=== PATIENT | female | born 1965 | race Caucasian/White ===

== ENCOUNTER 2020-11-03 20:08 | Inpatient (IN) | payer MEDICAID, OTHER ==
[~2020-11-03] VITALS: Ht 162.6 cm; Wt 98.5 kg
--- NOTE | 2020-11-03 20:41 | NUR ---
[facility] FROM [facility] IN [facility] PT C/O OF ABDOMINAL PAIN, CP, DIAPHORESIS, ABNORMAL BM'S OILY AND YELLOW. EMS STATES LAST HOSPITAL DIAGNOSED PANCREATITIS OR GASTRITIS. PT RECEIVED ZOFRAN AND [employer] [facility]. PT STATES SHE WAS HAVING N/V/D. PT AMBULATED FROM [facility] TO [facility] ALLERGY TO SULFA, AND CODEINE LAST SEIZURE WAS 30 YEARS
[2020-11-03 20:56] LABS: BASOPHILS % (AUTO) 1 % (0-1); EOSINOPHILS % (AUTO) 1 % (1-7); LYMPHOCYTES % (AUTO) 33 % (22-44); MEAN CORPUSCULAR HEMOGLOBIN 34.8 pg (27.0-34.8); MEAN CORPUSCULAR HGB CONC 34.4 g/dL (32.4-35.8); MEAN PLATELET VOLUME 8.2 fL (7.4-10.4); MONOCYTES % (AUTO) 7 % (2-9); NEUTROPHILS % (AUTO) 58 % (42-75); PLATELET COUNT 215 x10^3/uL (130-400); RED BLOOD COUNT 4.11 x10^6/uL (3.82-5.3)
[2020-11-03] MEDS ORDERED: LISI-170 PO (20:56)
--- NOTE | 2020-11-03 20:59 | NUR ---
PT AMBULATED TO [facility] TO HAVE BM
[2020-11-03 21:08] LABS: ALANINE AMINOTRANSFERASE 59 U/L (12-78); ALBUMIN 3.8 g/dL (3.4-5.0); ANION GAP 8 mmol/L (5-15); CALCIUM 8.9 mg/dL (8.5-10.1); CHLORIDE 104 mmol/L (98-107); CREATININE 2.14 mg/dL (0.55-1.02)
[2020-11-03 21:09] LABS: ALKALINE PHOSPHATASE 105 U/L (45-117); BILIRUBIN,TOTAL 1.2 mg/dL (0.2-1.0); TOTAL PROTEIN 7.6 g/dL (6.4-8.2)
--- NOTE | 2020-11-03 21:42 | NUR ---
PT AMBULATED BACK TO ROOM EARLIER WITH STEADY GAIT APPROX 5 MINUTES AFTER LAST NOTE. PT RESTING IN BED. ATTACHED TO ALL MONITORS. VSS. BED IN LOW POSITION. RAILS ENGAGED. CALL LIGHT WIHTIN REACH. NADN. GIVEN BLANKETS FOR WARMTH. WCTM. PT WAS ALSO GIVEN [address] PT ATTEMPT TO HAVE BM OR URINATE WAS UNSUCCESSFUL AND NOTHING CAME OUT.
--- NOTE | 2020-11-03 22:42 | NUR ---
Patient is resting comfortably in bed. Bed in lowest, rails engaged, call light on lap. Vital Signs within normal limits. WCTM.
[2020-11-03] MEDS ORDERED: SODIUM CHLORIDE FLUSH 10ML SYR IVF ONE (23:00)
[2020-11-03] MEDS ORDERED: SODIUM CHLORIDE 0.9% 1,000ML IVBOLUS ONE (23:00)
--- NOTE | 2020-11-03 23:46 | NUR ---
GAVE REPORT TO MARIANA FENG. TRANSFER OF CARE
--- NOTE | 2020-11-03 23:54 | NUR ---
SPOKE TO MD JACKSON ABOUT NOT HAVING A TROPONIN LAB AND EKG DONE ON PT AND HE STATED THAT AT THE HOSPITAL PRIOR TO COMING TO [facility] [place] PT RECIEVED THE CARE AND BOTH EKG AND TROPONIN LEVEL WERE WITHIN NORMAL LIMITS.
[2020-11-04 00:30] VITALS: BP 128/87
[2020-11-04] MEDS ORDERED: BISACODYL 10 MG SUPP PR PRN (00:30)
[2020-11-04] MEDS ORDERED: ONDANSETRON 2MG/ML, 2ML IVPush PRN (00:30)
[2020-11-04] MEDS ORDERED: ACETAMINOPHEN 325 MG TABLET PO PRN (00:30)
[2020-11-04] MEDS ORDERED: POLYETHYLENE GLYCOL 17 GM PACKET PO PRN (00:30)
[2020-11-04] MEDS ORDERED: LORazepam 2 MG/ML, 1ML IV PRN ×5 (01:00)
[2020-11-04] MEDS: CHLORDIAZEPOXIDE 25 MG CAPSULE PO SCH ×4 (01:04→21:17)
[2020-11-04] MEDS: SUCRALFATE 1 GM/10 ML UDC PO SCH ×5 (01:04→21:16)
[2020-11-04] MEDS: SODIUM CHLORIDE 0.9% 1,000 ML IV SCH ×3 (01:41→16:02)
[2020-11-04] MEDS: morphine SULFATE 10 MG/ML, 1ML IVPush PRN ×2 (02:00→18:26)
[2020-11-04] MEDS: MULTIVITAMINS/MINERALS TABLET PO SCH (08:05)
[2020-11-04] MEDS: FOLIC ACID 1 MG TABLET PO SCH (08:05)
[2020-11-04] MEDS: THIAMINE 100MG TABLET PO SCH ×2 (08:05→21:16)
[2020-11-04] MEDS: PANTOPRAZOLE 40MG TABLET PO SCH (08:05)
[2020-11-04 08:08] VITALS: BP 110/72
[2020-11-04 09:29] LABS: ALBUMIN 3.7 g/dL (3.4-5.0); ANION GAP 10 mmol/L (5-15); CALCIUM 8.9 mg/dL (8.5-10.1); CHLORIDE 107 mmol/L (98-107); CREATININE 1.94 mg/dL (0.55-1.02)
[2020-11-04] MEDS: NYSTATIN TOPICAL POWDER 15GM TP SCH ×2 (09:50→21:00)
[2020-11-04 10:50] LABS: CHLORIDE,URINE RANDOM 28 mmol/L; POTASSIUM,URINE RANDOM 28 mmol/L; SODIUM,URINE RANDOM 61 mmol/L
[2020-11-04 10:51] LABS: MICROSCOPIC INDICATED
[2020-11-04] MEDS: NICOTINE 14MG/24 HR PATCH.TD24 TD SCH (13:39)
[2020-11-04 14:00] VITALS: BP 109/74
[2020-11-04] MEDS: SERTRALINE 50MG TABLET PO SCH (16:01)
[2020-11-04 21:21] VITALS: BP 119/81
[2020-11-05] MEDS: SODIUM CHLORIDE 0.9% 1,000 ML IV SCH (01:55)
[2020-11-05] MEDS: CHLORDIAZEPOXIDE 25 MG CAPSULE PO SCH ×4 (02:00→18:29)
[2020-11-05 02:04] VITALS: BP 115/79
[2020-11-05 05:34] LABS: BASOPHILS % (AUTO) 1 % (0-1); EOSINOPHILS % (AUTO) 3 % (1-7); LYMPHOCYTES % (AUTO) 36 % (22-44); MEAN CORPUSCULAR HEMOGLOBIN 35.6 pg (27.0-34.8); MEAN CORPUSCULAR HGB CONC 34.8 g/dL (32.4-35.8); MEAN PLATELET VOLUME 8.5 fL (7.4-10.4); MONOCYTES % (AUTO) 6 % (2-9); NEUTROPHILS % (AUTO) 54 % (42-75); PLATELET COUNT 183 x10^3/uL (130-400); RED CELL DISTRIBUTION WIDTH 14.8 % (9.6-15.2)
[2020-11-05 05:42] LABS: ANION GAP 5 mmol/L (5-15); CALCIUM 8.9 mg/dL (8.5-10.1); CHLORIDE 111 mmol/L (98-107)
[2020-11-05] MEDS: SUCRALFATE 1 GM/10 ML UDC PO SCH ×4 (06:40→20:52)
[2020-11-05 07:20] VITALS: BP 119/82
[2020-11-05 07:20] LABS: TROPONIN I < 0.015 ng/mL (0.000-0.045)
[2020-11-05] MEDS ORDERED: BUPROPION SR 100 MG TABLET PO SCH (08:00)
[2020-11-05] MEDS: THIAMINE 100MG TABLET PO SCH ×2 (08:32→20:52)
[2020-11-05] MEDS: BUPROPION 75 MG TABLET PO SCH ×2 (08:32→12:36)
[2020-11-05] MEDS: FOLIC ACID 1 MG TABLET PO SCH (08:32)
[2020-11-05] MEDS: MULTIVITAMINS/MINERALS TABLET PO SCH (08:32)
[2020-11-05] MEDS: PANTOPRAZOLE 40MG TABLET PO SCH (08:32)
[2020-11-05] MEDS: NYSTATIN TOPICAL POWDER 15GM TP SCH ×2 (08:33→21:00)
[2020-11-05] MEDS: NICOTINE 14MG/24 HR PATCH.TD24 TD SCH (12:36)
[2020-11-05 12:43] VITALS: BP 128/73
[2020-11-05] MEDS ORDERED: BUPR75TA6 PO (14:09)
[2020-11-05] MEDS ORDERED: HYDR-826 PO (14:09)
[2020-11-05] MEDS ORDERED: SERT50TA28 PO (14:09)
[2020-11-05] MEDS: morphine SULFATE 10 MG/ML, 1ML IVPush PRN ×2 (14:53→20:52)
[2020-11-05] MEDS: SERTRALINE 50MG TABLET PO SCH (16:35)
[2020-11-05 21:00] VITALS: BP 128/84
[2020-11-06 00:47] VITALS: BP 145/84
[2020-11-06] MEDS ORDERED: PANT40TA6 PO (06:40)
[2020-11-06] MEDS ORDERED: SUCR1ORA5 PO (06:40)
[2020-11-06] MEDS ORDERED: THIA100T67 PO (06:40)
[2020-11-06] MEDS ORDERED: FOLI1TAB32 PO (06:40)
[2020-11-06 07:50] VITALS: BP 124/83
[2020-11-06] MEDS: SUCRALFATE 1 GM/10 ML UDC PO SCH ×3 (09:07→16:13)
[2020-11-06] MEDS: THIAMINE 100MG TABLET PO SCH (09:08)
[2020-11-06] MEDS: MULTIVITAMINS/MINERALS TABLET PO SCH (09:09)
[2020-11-06] MEDS: FOLIC ACID 1 MG TABLET PO SCH (09:09)
[2020-11-06] MEDS: PANTOPRAZOLE 40MG TABLET PO SCH (09:09)
[2020-11-06] MEDS: NYSTATIN TOPICAL POWDER 15GM TP SCH (09:10)
[2020-11-06] MEDS: BUPROPION 75 MG TABLET PO SCH ×2 (09:10→12:35)
[2020-11-06 13:28] VITALS: BP 120/83
[2020-11-06] MEDS: NICOTINE 14MG/24 HR PATCH.TD24 TD SCH (13:40)
[2020-11-06] MEDS: SERTRALINE 50MG TABLET PO SCH (16:14)
== END 2020-11-06 19:17 | disposition home or self-care (01) | DRG 682 ==
LOC: ED 20:38 → EDIP 23:18 → 5SO 11-04 00:13
PROVIDERS: ADMIT Family Medicine; ATTEND Family Medicine
DX: N17.9 Acute kidney failure, unspecified (principal); K85.90 Acute pancreatitis without necrosis or infection, unspecified; F33.2 Major depressive disorder, recurrent severe without psychotic features; R45.851 Suicidal ideations; K29.20 Alcoholic gastritis without bleeding; B37.2 Candidiasis of skin and nail; F10.20 Alcohol dependence, uncomplicated; F12.90 Cannabis use, unspecified, uncomplicated; F17.200 Nicotine dependence, unspecified, uncomplicated; F29 Unspecified psychosis not due to a substance or known physiological condition; F41.9 Anxiety disorder, unspecified; I10 Essential (primary) hypertension; K29.50 Unspecified chronic gastritis without bleeding; N15.9 Renal tubulo-interstitial disease, unspecified; R56.9 Unspecified convulsions; E66.9 Obesity, unspecified; R45.87 Impulsiveness; Z80.0 Family history of malignant neoplasm of digestive organs; Z80.3 Family history of malignant neoplasm of breast; Z82.49 Family history of ischemic heart disease and other diseases of the circulatory system; Z68.37 Body mass index [BMI] 37.0-37.9, adult; Z79.899 Other long term (current) drug therapy; Z79.891 Long term (current) use of opiate analgesic; Z79.01 Long term (current) use of anticoagulants; Z80.8 Family history of malignant neoplasm of other organs or systems; Z82.41 Family history of sudden cardiac death; Z84.89 Family history of other specified conditions; Z88.5 Allergy status to narcotic agent; Z88.2 Allergy status to sulfonamides
CPT/HCPCS: 36415; 80048; 80053; 80069; 81001; 82436; 82570; 83690; 83735; 84133; 84300; 84484; 85025; 87086; 93005; 99285; G0378; J2405; J2060; J2270; J7030; Q0177